=== PATIENT | female | born 1995 | race Hispanic/Latino ===

== ENCOUNTER 2024-10-28 20:13 | Inpatient (IN) | payer MEDICAID, OTHER, SELFPAY ==
[~2024-10-28 20:13] MED LIST: Bupivacaine HCl 0.5%/Epinephrine 1:200,000/PF 30 ml Vial ONE; Bupivacaine/Epinephrine 0.25% 30 ML VIAL ONE; Lidocaine 2% MPF 10 ML AMP (For Epidural Use) ONE
[2024-10-28 21:10] VITALS: BMI 39.0
[2024-10-28 21:19] LABS: Fetal Membranes Rupture No Membranes Rupture (No Rupture)
[2024-10-28] MEDS ORDERED: hydrALAZINE 20 MG/ML VIAL SLOW IVP PRN ×2 (21:22→22:22)
[2024-10-28] MEDS ORDERED: Promethazine HCl 25 MG/ML VIAL IM PRN (22:22)
[2024-10-28] MEDS ORDERED: Methylergonovine 0.2 MG/ML VIAL IM PRN (22:22)
[2024-10-28] MEDS ORDERED: Misoprostol 200 MCG TAB PR PRN (22:22)
[2024-10-28] MEDS ORDERED: Diphenoxylate HCl/Atropine Tablet PO PRN (22:22)
[2024-10-28] MEDS ORDERED: Carboprost 250 MCG/ML AMP IM PRN (22:22)
[2024-10-28] MEDS ORDERED: Lidocaine 1% (PF) 30 ML VIAL SC PRN (22:22)
[2024-10-28] MEDS ORDERED: Oxytocin 30 units/NS 500 ML 500 ML IV SCH (22:30)
[2024-10-28 23:16] LABS: Hematocrit 36.5 % (34.9-44.5); Hemoglobin 12.6 g/dL (12.0-15.5); Mean Corpuscular HGB CONC 34.5 g/dL (32.0-36.0); Mean Corpuscular Hemoglobin 32.4 pg (27.0-33.0); Mean Corpuscular Volume 93.8 fL (81.6-98.3); Mean Platelet Volume 13.1 fL (7.4-10.4); Platelet Count 209 10x3/uL (150-450); RBC Distribution Width 13.4 % (11.5-14.5); Red Blood Cell (RBC) Count 3.89 10x6/uL (3.90-5.03); White Blood Cell (WBC) Count 10.1 10x3/uL (3.5-10.5)
[2024-10-28 23:50] LABS: Syphilis Antibody Nonreactive (Nonreactive); Syphilis Antibody Index 0.05 S/CO (<1.00 Non-Reactive)
[2024-10-28 23:51] LABS: HBsAg Index 0.18 S/CO (0-0.99); HIV (1/2) Antibody/Antigen Non-Reactive (NonReactive); HIV 1/2 INDEX 0.04 S/CO (<1.00); Hep B Surf Ag - L&D Non-Reactive S/CO (NonReactive)
[2024-10-29] MEDS: fentaNYL 50 mcg/mL 1 mL Vial SLOW IVP SCH (04:12)
[2024-10-29] MEDS: fentaNYL/Ropivacaine Epidural 100 ML ONE (06:22)
[2024-10-29] MEDS ORDERED: Ondansetron PF 4 MG/2 ML Vial IVP PRN ×3 (06:24→23:10)
[2024-10-29] MEDS ORDERED: Moisturizing Cream (Eucerin) 113 GM JAR TOP PRN ×2 (06:24→23:10)
[2024-10-29] MEDS ORDERED: diphenhydrAMINE 50 MG/ML VIAL IVP PRN ×2 (06:24→23:10)
[2024-10-29] MEDS ORDERED: Promethazine HCl 25 MG/ML VIAL IM PRN ×2 (06:24→23:10)
[2024-10-29] MEDS ORDERED: Naloxone HCl 0.4 mg/ml Vial IVP PRN ×4 (06:24→23:10)
[2024-10-29] MEDS ORDERED: Lactated Ringer's 500 ML IV PRN (06:24)
[2024-10-29] MEDS ORDERED: ePHEDrine Sulfate 50 MG/10 ML VIAL SLOW IVP PRN (06:24)
[2024-10-29] MEDS ORDERED: Acetaminophen 325 MG TAB PO PRN (06:24)
[2024-10-29] MEDS ORDERED: ACTIVE EPIDURAL FS PRN (06:30)
[2024-10-29] MEDS: fentaNYL 2 mcg/Ropivacaine 0.2% Epidural 100 ML CADD EPIDURAL SCH (17:20)
[2024-10-29] MEDS: Ampicillin 2 GM VIAL ONE (20:14)
[2024-10-29] MEDS: Acetaminophen 500 MG TAB PO SCH (21:06)
[2024-10-29] MEDS: Ondansetron PF 4 MG/2 ML Vial IVP PRN (21:14)
[2024-10-29] MEDS: Gentamicin 320 MG, Admixture Fee 1 EACH in Sodium Chloride 0.9% 100 ML IVPB SCH (21:31)
[2024-10-29] MEDS ORDERED: Bicitra 30 ML UDCUP PO PRN (21:57)
[2024-10-29] MEDS ORDERED: Famotidine/PF 20 mg/2ml Vial SLOW IVP PRN (21:57)
[2024-10-29] MEDS ORDERED: Azithromycin 500 MG in Sodium Chloride 0.9% 250 ML 250 ML IVPB SCH (22:00)
[2024-10-29] MEDS ORDERED: diphenhydrAMINE 25 MG CAP PO PRN (22:01)
[2024-10-29] MEDS ORDERED: hydrALAZINE 20 MG/ML VIAL SLOW IVP PRN (22:01)
[2024-10-29] MEDS ORDERED: Lanolin Ointment 7 GM TUBE TOP PRN (22:01)
[2024-10-29] MEDS ORDERED: Simethicone Chewable 80 MG TAB PO PRN (22:01)
[2024-10-29 22:52] LABS: Analyzer IN Cardio CS NICU; Critical Notified By: CP.PH; RapidComm Collect By CBN; pH (Cord, venous) 7.294 (7.250-7.350)
[2024-10-29 22:54] LABS: Analyzer IN Cardio CS NICU; Critical Notified By: CP.PH; RapidComm Collect By CBN
[2024-10-29] MEDS ORDERED: Meperidine HCl/PF 25 MG (1 mL) VIAL SLOW IVP PRN (23:10)
[2024-10-29] MEDS ORDERED: HYDROmorphone 0.5 MG/0.5 ML SYRINGE SLOW IVP PRN (23:10)
[2024-10-29] MEDS ORDERED: Naloxone HCl 0.4 mg/ml Vial IV PRN (23:10)
[2024-10-29] MEDS ORDERED: fentaNYL 50 mcg/mL 1 mL Vial SLOW IVP PRN (23:10)
[2024-10-29] MEDS ORDERED: Communication Order-Pharmacy FS SCH (23:15)
[2024-10-29] MEDS ORDERED: Ketorolac Tromethamine 30 MG (1 mL) VIAL IVP SCH (23:15)
[2024-10-30] MEDS: fentaNYL 50 mcg/mL 1 mL Vial ONE ×3 (00:01→00:02)
[2024-10-30] MEDS: Ampicillin 2 GM in Sodium Chloride 0.9% 100 ML IVPB SCH (00:01)
[2024-10-30] MEDS: Lactated Ringer's 1,000 ML IV SCH (00:01)
[2024-10-30] MEDS: Oxytocin 10 UNITS/ML VIAL ONE (00:03)
[2024-10-30] MEDS: Dexamethasone 10 MG/ML VIAL ONE (00:03)
[2024-10-30] MEDS: Morphine PF 10 MG/10 ML VIAL ONE (00:03)
[2024-10-30] MEDS: Azithromycin 500 MG VIAL ONE (00:03)
[2024-10-30] MEDS: Ketorolac Tromethamine 30 MG (1 mL) VIAL ONE (00:03)
[2024-10-30] MEDS: KETAMINE 100 MG/ML (5ML VIAL) ONE (00:03)
[2024-10-30] MEDS: Ondansetron PF 4 MG/2 ML Vial ONE (00:03)
[2024-10-30] MEDS: Oxytocin 30 units/NS 500 ML 500 ML IV SCH (00:35)
[2024-10-30] MEDS: Boostrix 0.5 ML (Tdap) VIAL (>/=7 yrs of age) IM ONE (01:39)
[2024-10-30 04:32] LABS: Hematocrit 34.7 % (34.9-44.5); Mean Corpuscular HGB CONC 34.6 g/dL (32.0-36.0); Mean Corpuscular Hemoglobin 33.1 pg (27.0-33.0); Mean Corpuscular Volume 95.9 fL (81.6-98.3); Mean Platelet Volume 13.6 fL (7.4-10.4); Platelet Count 167 10x3/uL (150-450); RBC Distribution Width 13.5 % (11.5-14.5); Red Blood Cell (RBC) Count 3.62 10x6/uL (3.90-5.03)
[2024-10-30 05:13] LABS: MDiff Complete? YES
[2024-10-30 05:15] LABS: Band 14 % (5-11); Lymphocytes 3 % (21-51); Monocytes 6 % (0-10); Neutrophil 77 % (42-75)
[2024-10-30 05:16] LABS: Platelet Adequacy Comment Platelets Normal; RBC Morph Comment Within Normal Limits
[2024-10-30] MEDS: Ketorolac Tromethamine 30 MG (1 mL) VIAL IVP PRN (06:14)
[2024-10-30] MEDS: Ferrous Sulfate 325 MG TAB PO SCH (07:30)
[2024-10-30] MEDS: Prenatal Vitamin 1 TAB PO SCH (08:30)
[2024-10-30] MEDS: Docusate 100 MG CAP PO SCH (08:30)
[2024-10-30] MEDS ORDERED: HYDROcodone/Acetaminophen 5/325 mg Tablet PO PRN (11:15)
[2024-10-31] MEDS: Ampicillin 2 GM in Sodium Chloride 0.9% 100 ML IVPB SCH (00:40)
[2024-10-31] MEDS: Ibuprofen 800 MG TAB PO SCH (05:22)
[2024-10-31] MEDS: Polyethylene Glycol 3350 17 GM Packet PO SCH (07:33)
[2024-10-31 20:05] VITALS: BP 109/56; TEMP 98.5
== END 2024-10-31 22:00 | disposition home or self-care (01) | DRG 786 ==
LOC: CSHLD/OP 20:13 → CSHLD 22:44 → CSHPP 10-30 01:10
PROVIDERS: ADMIT Obstetrics & Gynecology; ATTEND Obstetrics & Gynecology
PROC: 10D00Z1 Extraction of Products of Conception, Low, Open Approach (ICD-10-PCS; principal; 2024-10-29)
DX: O42.02 Full-term premature rupture of membranes, onset of labor within 24 hours of rupture (principal); O41.1230 Chorioamnionitis, third trimester, not applicable or unspecified; O41.03X0 Oligohydramnios, third trimester, not applicable or unspecified; O75.2 Pyrexia during labor, not elsewhere classified; Z3A.39 39 weeks gestation of pregnancy; Z37.0 Single live birth; O36.8130 Decreased fetal movements, third trimester, not applicable or unspecified; Z90.49 Acquired absence of other specified parts of digestive tract; O76 Abnormality in fetal heart rate and rhythm complicating labor and delivery; O32.4XX0 Maternal care for high head at term, not applicable or unspecified
CPT/HCPCS: 36415; 51702; 76819; 82805; 84112; 85025; 85027; 86780; 86850; 86900; 86901; 87340; 87389; 99285; J0290; J1100; J1580; J1885; J2274; J2405; J2590; J3010